=== PATIENT | female | born 1965 | race Caucasian/White ===

== ENCOUNTER → 2017-10-30 09:03 | Outpatient (CLI) | payer BC, SELFPAY ==
--- NOTE | 2017-10-30 09:10 | MM_ITS ---
. MM Dig screening mamm BI w/CAD CAD Screening ORDERING PHYSICIAN : Yanet Troncoso PATIENT AGE: 52 years GENDER: Female COMPARISON: Previous mammograms: August 2015. January 2013, February and 2007 INDICATION: Routine screening 50-year-old. Reports female hormones over past year. No new complaints Family history maternal great grandmother and maternal aunt with breast cancer TECHNIQUE: Standard CC and MLO images were obtained. Additional axillary cc views both breast R2 CAD reviewed. FINDINGS: Mild/Moderate breast density bilaterally with no dominant mass nor suspicious calcifications Slight Decreasing density the breast since previous film screen studies 2007 and 13 RIGHT BREAST: At the very posterior margin of today's MLO view there is a partially imaged small ~nearly 7 mm smooth margin nodular density which was not seen on the multiple available prior studies. Suspect This is most likely an lymph node at the very deep portion of the breast that was not included on previous studies.. However would suggest 6 month follow-up to confirm stability since it is new. (Favor would be the most cost effective way to confirm stability of this likely benign area.) Other small areas of nodularity in the deep axillary breast remain stable; . These long-standing latter areas contain some central lucency compatible with fatty umbilication of intramammary node& are not of concern. LEFT BREAST: Small area highlighted by CAD at the left breast is been stable since 2012 and 2007 No new areas of concern in the left. IMPRESSION: ......... 1. Right Breast. Small partially imaged 7 mm smooth nodular density the posterior margin of today's MLO image it is most likely a deep intramammary lymph node.. However since it was not seen on previous studies, I would suggest 6 month follow-up to confirm stability . Other small areas of nodularity at the deep right breast unchanged . 2. Left breast. Stable. No new findings. BI-RADS Category: 3 Benign Finding Short Term Follow-up RECOMMENDED FOLLOW-UP: 6M - 6 MONTH FOLLOW-UP right breast (A letter has been sent to the patient regarding results of the study.)
== END ==
PROVIDERS: Family Provider Family Medicine; PCP Nurse Practitioner Family; Visit Provider Obstetrics & Gynecology
DX: Z12.31 Encounter for screening mammogram for malignant neoplasm of breast (principal)
CPT/HCPCS: 77067

== ENCOUNTER → 2018-05-08 12:56 | Outpatient (CLI) | payer BC, SELFPAY ==
--- NOTE | 2018-05-08 13:04 | MM_ITS ---
MM Dig mamm DX unilat RT CAD INDICATION: Follow-up abnormal mammogram ORDERING PHYSICIAN: Yanet Troncoso PATIENT AGE: 53 years COMPARISON: 10/30/2017, 08/24/2015, 02/16/2013 TECHNIQUE: Standard images performed along with spot compression views FINDINGS: Average to dense fibroglandular tissue. Partially imaged smooth marginated nodular density seen in the deep aspect of the right breast on the MLO is once again noted somewhat difficult to image in the MLO view due to the deep location. Spot compression view shows this area to measure approximately 1 x 0.6 cm and likely corresponds to axillary lymph node demonstrated on the exiting [place] and not significant changed compared to multiple previous exams. There is an area of asymmetric density in the central aspect of the right breast slightly lateral probably due to asymmetric fibroglandular tissue incompletely compressed cavernous similar appearance on 08/24/2015 not redemonstrated on the axial [place] or the MLO view. There is asymmetric density lateral and superior to the nipple area or complex not significant changed dating back to 02/16/2013. No malignant appearing mass or malignant microcalcification. Benign-appearing nodules are present on the right IMPRESSION: Benign findings, no evidence of malignancy Recommend resume screening mammogram in October 2018 BI-RADS Category: 2 Benign Finding(s) RECOMMENDED FOLLOW-UP: 6M - 6 MONTH FOLLOW-UP (A letter has been sent to the patient regarding results of the study.)
== END ==
PROVIDERS: PCP Nurse Practitioner; Visit Provider Obstetrics & Gynecology
DX: Z09 Encounter for follow-up examination after completed treatment for conditions other than malignant neoplasm (principal)
CPT/HCPCS: 77065

== ENCOUNTER → 2019-02-09 15:52 | Outpatient (CLI) | payer BC, SELFPAY ==
--- NOTE | 2019-02-09 15:58 | MM_ITS ---
PROCEDURE: MM DIG SCREENING MAMM BI W/CAD CLINICAL INDICATION: SCREENING There is a history of breast cancer in patient's maternal great grandmother and maternal aunt COMPARISON: DMSB DIG MAMM-SCREEN FADI from 08/24/2015 SCBI MM Dig screening mamm BI w/CAD from 10/30/2017 DXRT MM Dig mamm DX unilat RT CAD from 05/08/2018 TECHNIQUE: Standard CC and MLO images were obtained. R2 CAD reviewed. FINDINGS: Prominent diffuse fibroglandular densities are seen in both breast somewhat lessening the sensitivity of mammography. There well-defined nodular density axilla right breast typical of a low-lying node. There is a 2nd well-defined nodular lesion upper outer quadrant and this likely is an intramammary node. There is no suspicious lesion and no suspicious microcalcifications. IMPRESSION: Moderate breast density with no suspicious lesions seen BI-RAD Category: 2 Benign Finding(s) FOLLOW-UP: 1YR 1 Year Follow-up (A letter has been sent to the patient regarding results of the study.) Dictated by: Dr. Nakul Flaherty MD 02/13/2019 12:[address] Nakul Flaherty MD in [place] 02/13/2019 12:57
== END ==
PROVIDERS: PCP Nurse Practitioner; Visit Provider Advanced Practice Midwife
DX: Z12.31 Encounter for screening mammogram for malignant neoplasm of breast (principal)
CPT/HCPCS: 77067

== ENCOUNTER → 2020-08-08 16:47 | Outpatient (CLI) | payer BC, SELFPAY ==
--- NOTE | 2020-08-08 16:53 | MM_ITS ---
PROCEDURE: MM DIG SCREENING MAMM BI W/CAD Digital Breast Tomosynthesis Included CLINICAL INDICATION: SCREENING Breast cancer in the patient's maternal great grandmother and maternal aunt. COMPARISON: MG SCBI MM Dig screening mamm BI w/CAD from 10/30/2017 MG DXRT MM Dig mamm DX unilat RT CAD from 05/08/2018 MG MM DIG SCREENING MAMM BI W/CAD from 02/09/2019 TECHNIQUE: Standard CC and MLO images and 3D Tomosynthesis was obtained. R2 CAD reviewed. FINDINGS: Prominent diffuse fibroglandular densities are seen throughout both breast. There are stable small nodular benign-appearing densities upper outer quadrant right breast. There are stable low-lying nodes in both axilla. There is no new or suspicious lesion in either breast and no suspicious microcalcifications. IMPRESSION: Stable exam with moderate diffuse breast density BI-RAD Category: 2 Benign Finding(s) FOLLOW-UP: 1YR 1 Year Follow-up (A letter has been sent to the patient regarding results of the study.) Dictated by: Dr. Nakul Flaherty MD 08/09/2020 12:01 Dr. Nakul Flaherty MD in [place] 08/09/2020 12:01
== END ==
PROVIDERS: PCP Nurse Practitioner; Visit Provider Advanced Practice Midwife
DX: Z12.31 Encounter for screening mammogram for malignant neoplasm of breast (principal)
CPT/HCPCS: 77063; 77067

== ENCOUNTER → 2021-02-01 16:39 | Outpatient (CLI) | payer BC, SELFPAY | PROVIDERS: PCP Family Medicine; Visit Provider Nurse Practitioner | DX: Z20.822 Contact with and (suspected) exposure to COVID-19 (principal) | CPT/HCPCS: C9803; U0003; U0005 ==

== ENCOUNTER → 2022-02-01 13:41 | Outpatient (CLI) | payer BC, SELFPAY ==
--- NOTE | 2022-02-01 13:52 | XR_ITS ---
FINAL REPORT CLINICAL HISTORY: LEFT ANTERIOR KNEE PAIN FINDINGS: Three views of the left knee reveal no evidence of fracture or dislocation. The bony alignment is normal. There are mild degenerative changes. There is no evidence of joint effusion. No localized soft tissue abnormality is seen. IMPRESSION: Degenerative change with no acute abnormality identified. Reviewed, Interpreted and Dictated by Cm Wells III, MD Transcribed by Stella Adame Authenticated and [facility]
== END ==
PROVIDERS: PCP Nurse Practitioner Family; Visit Provider Nurse Practitioner Family
DX: M25.562 Pain in left knee (principal)
CPT/HCPCS: 73562

== ENCOUNTER 2024-11-25 10:44 | Outpatient (CLI) | payer BC, SELFPAY ==
--- OUTSIDE RECORDS SUMMARY | 2024-11-25 10:47 | XMS_ITS | Data Portability ---
Author Organization [place] [employer] [facility] Address [address] [place] [address] Care Team Providers Care Curator Of Collections Name Role Phone COLETTE KIDD Primary Care Provider [phone] Assessment No assessment recorded. Plan of Treatment Reminders Order Date Submit Date Provider Last Modified By Organization Details Last Modified Time Details Appointments None recorded. Lab rapid SARS CoV 2 Ag, QL, IA, upper respiratory specimen 2021 022 [email or web address] 5 [facility], [address] [place] [address], [phone], 14:00:56 rapid flu (A+B) 2021 [facility]22 [email or web address], [address] [place] [address], [phone], 14:00:57 Referral None recorded. Procedures None recorded. Surgeries None recorded. Imaging None recorded. Medication Orders cefdinir 300 mg capsule 2022 [facility] [address] [place] [address], [address], [address], 12:58:36 Zithromax Z-Pb 250 mg tablet 2021 022 [email or web address] 0 [facility], [address] [place] [address], [address], [address], 12:31:31 Patient TargetsNo targets recorded. Patient Instructions Encounter Date Encounter Id Patient Instructions Last Modified By Organization Details Last Modified Time 03/21/2023 [id number] eating healthy foods: care instructions [email or web address] Not available 03/21/2023 12:52:38 exercise Not available 03/21 12:52:38 Reason for Referral None Reported. Results Created Date Observation Date Name Description Value Unit Range Abnormal Flag Note LastModifiedBy Organization Detail LastModifiedTime 02/21/20 22 02/20/2022 rapid SARS CoV 2 Ag, QL, IA, upper respi rator y speci men SARS CoV Ag negati ve Not Available [facility] on [address], [address], 02/20/2022 12:44:28 02/21/2002/20/2022 rapid flu (A+B) Flu A negati ve Not Available [facility] on [address], [phone], 02/20/2022 12:44:34 02/21/2002/20/2022 rapid flu (A+B) Flu B negati ve Not Available [facility] on [address], [address], 02/20/2022 12:44:34 Result Notes None recorded. Problems Name Problem SNOMED Code Status Onset Date Resolution Date Notes Provider Name and Address Organization Details Recorded Time Acute sinusitis 63193999 Active 2020 Problem Code: J01.90; Problem Code Type: ICD-10; Not Available [facility] 22:00:57 Allergic rhinitis caused by pollen 30300871 Active 2021 Problem Code: J30.1; Problem Code Type: ICD-10; Not Available [facility] 22:00:57 Problem Notes None recorded. Procedures Surgical History Date Name Laterality Status Provider Name and Address Organization Details Recorded Time tonsillectomy completed Angelina Fong [place] - [facility]. 03/21/2023 12:40:00 Imaging Results None recorded. Procedure Notes None recorded. Medical Equipment None Reported. Allergies No known drug allergies Medications Name Sig Start Date Stop Date Status Note LastModified by Organization Details LastModified Time prednisone 10 mg tablet take 50 mg by oral route once daily day 1 then decrease by 10mg po QD 02/20 completed Not Available Not Available Not Available cefuroxime axetil 250 mg tablet take 1 tablet (250 mg) by oral route 2 times per day 08/03 completed Not Available Not Available Not Available azithromyci n 250 mg tablet TAKE 2 TABLETS (500 MG) BY ORAL ROUTE ONCE DAILY FOR 1 DAY THEN 1 TABLET (250 MG) BY ORAL ROUTE ONCE DAILY FOR 4 DAYS 03/21 completed Not Available Not Available Not Available clarithromy caro 500 mg tablet active Not Available Not Available Not Available meloxicam 15 mg tablet active Not Available Not Available Not Available prednisolon e acetate 1 % eye drops,suspe nsion active Not Available Not Available Not Available hydrochloro thiazide 12.5 mg capsule take 1 capsule (12.5 mg) by oral route once daily active Not Available Not Available No t Available methylpredn isolone 4 mg tablets in a dose pack as directed active Not Available Not Available No t Available cefdinir 300 mg capsule Take 1 capsule every 12 hours by oral route for 7 days. active Not Available Not Available No t Available fluticasone propionate 50 mcg/actuati on nasal spray,suspe nsion active Not Available Not Available Not Available metoprolol tartrate 25 mg tablet active Not Available Not Available No t Available metoprolol tartrate 02/20 completed Not Available Not Available Not Available Ada Allergy 2021 active Not Available Not Available Not Avai lable Multi Vitamin 2021 active Not Available Not Available Not Avai lable QuickVue At-Home COVID-19 Test kit 03/21 completed Not Available Not Available Not Available Vitals Date Recorded Body weight Body mass index (BMI) Body height Body temperature Heart rate Oxygen saturation Oxygen saturation in Arterial blood by Pulse oximetry Provider Name and Address Organization Details Last Updated DateTime 2 57102.3 6 g 31.7 kg/m2 175.26 cm 97.6 [degF] 67 /min 100 % 100 % [employer] 2 12:41:12 Date Recorded Body height Body mass index (BMI) Body weight Body temperature Heart rate Oxygen saturation Oxygen saturation in Arterial blood by Pulse oximetry Provider Name and Address Organization Details Last Updated DateTime 3 172.72 cm 32.5 kg/m2 48961.7 7 g 98.2 [degF] 69 /min 98 % 98 % Angelina Fong [employer] 3 12:31:27 Social History Question Answer Notes LastModified by Organizat ion Details LastModified Time Tobacco Smoking Status Never Smoker SocialHis toryQuest ion: 'Tobacco/ Alcohol/S upplement s'; SocialHis toryRespo nse: 'Never Smoker'; Not Available [facility] 01/23/2022 23:01:56 Is Your Home Air Conditioned? Yes [email or web address] Information not available 03/21/2023 Do You Wear A Helmet When Biking? No [email or web address] Information not available 03/21/2023 Are You Blind Or Do You Have Difficulty Seeing? No Information not available 02/20/2022 Are You A Caregiver? No [email or web address] Information not available 03/21/2023 In The 14 Days Before Symptom Onset, Have You Had Close Contact With A Laboratory-confir med COVID-19 While That Case Was Ill? No [email or web address] Information not available 03/21/2023 In The 14 Days Before Symptom Onset, Have You Had Close Contact With A Person Who Is Under Investigation For COVID-19 While That Person Was Ill? No [email or web address] Information not available 03/21/2023 Have You Been To An Area Known To Be High Risk For COVID-19? No [email or web address] Information not available 03/21/2023 Are You Deaf Or Do You Have Serious Difficulty Hearing? No Information not available 02/20/2022 What Type Of Diet Are You Following? REGULAR [email or web address] Information not available 03/21/2023 Who Is Your Employer? [email or web address] Information not available 02/20/2022 Have There Been Any Changes To Your Family Or Social Situation? No [email or web address] Information no t available 03/21/2023 Are There Any Guns Present In Your Home? No [email or web address] Information not available 03/21/2023 What Is Your Relationship Status? Unknown Information not available 02/20/2022 Do You Use Your Seat Belt Or Car Seat Routinely? Yes [email or web address] Information not available 03/21/2023 Do You Have Smoke And Carbon Monoxide Detectors In Your Home? Yes [email or web address] Information not available 03/21/2023 Are You Passively Exposed To Smoke? No [email or web address] Information no t available 03/21/2023 Are There Any Smokers In Your House? No [email or web address] Information not available 03/21/2023 Do You Participate In Social Media? No [email or web address] Information not available 03/21/2023 Do You Use Sunscreen Routinely? Yes [email or web address] Information not available 03/21/2023 Has Tobacco Cessation Counseling Been Provided? No [email or web address] Information not available 03/21/2023 Have You Recently Traveled Abroad? No [email or web address] Information not available 03/21/2023 Do You Have Difficulty Walking Or Climbing Stairs? No Information no t available 02/20/2022 Are You Currently In School? No Information not available 02/20/2022 Do You Have Any Dietary Restrictions? No [email or web address] Information not available 03/21/2023 Sex: Female Functional Status Question Answer Note LastModified by Organizat ion Details LastModified Time Do you use any illicit or recreational drugs? No [email or web address] Information not available 03/21/2023 Do you or have you ever used any other forms of tobacco or nicotine? No [email or web address] Information not available 03/21/2023 What is your level of alcohol consumption? None Information not available 02/20/2022 Are you currently employed? Yes Information not available 02/20/2022 Do you have transportation difficulties? No Information not available 02/20/2022 Are you able to walk? [email or web address] Information not available 02/20/2022 Do you have difficulty doing errands alone? No Information not available 02/20/2022 Are you able to care for yourself? Yes Information not available 02/20/2022 Do you have difficulty dressing or bathing? No [facility] Information not available 02/20/2022 Mental Status Question Answer Note LastModified by Organizat ion Details LastModified Time Do you have difficulty concentrating, remembering or making decisions? No [facility] Information n ot available 02/20/2022 Family History Relationship Description Onset Age of this Age Resolved Age Notes LastModified by Organization Details LastModified Time Unspecified Relation Family history of Hypertension Relati ve: ''; [email or web address] Not available 01/23/2022 22:56:37 Unspecified Relation Family history of drug abuse Relati ve: ''; [email or web address] Not available 01/23/2022 22:56:37 Unspecified Relation Family history of alcoholism Relati ve: ''; [email or web address] Not available 01/23/2022 22:56:37 Unspecified Relation Family history of diabetes mellitus type 2 Relati ve: ''; [email or web address] Not available 01/23/2022 22:56:37 Medical History Condition Response Polyps Y Rheumatoid Arthritis Y Allergies/Hayfever Y Hypertension Y Gynecological HistoryNo gynecological history recorded. Obstetrics History GPAL:G 0 P 0 0 0 0 Past Encounters Encounter ID Performer Location Encounter Start Date Encounter Closed Date Diagnosis/Indication Diagnosis SNOMED-CT Code Diagnosis ICD10 Code Diagnosis Note [id number] Carmen Little PA-C [employer] [place] [phone] 02/20/2022 12:38:22 02/20/2022 14:49:44 Acute sinusitis 61444110 J01.90 rest, increase fluids, Tylenol for fever or headache, and humidifier . Continue Nasal spray. Body mass index 30+ - obesity 244914462 Z68.31 Tobacco non-user 4526229 001 51995 Z13.89 [id number] Carmen Little PA-C [employer] [facility] [address] [phone] 03/21/2023 12:29:53 03/22/2023 14:07:02 Acute maxillary sinusitis 21949182 J01.00 Omnicef as prescribed . Stop Ada and take Bromfed DM for congestion or cough. Humidifier and continue Flonase. F/u in 5-7 days if not improved. Body mass index 30+ - obesity 721778447 Z68.31 Tobacco non-user 6794151 001 66487 Z13.89 Health Concerns Section Related Observation LastModified by Organization Detai ls LastModified Time None Recorded Concern Status LastModified by Organization Details LastModified Time None Recorded Advance Directives Directive None Recorded Payers Insurance Date Sequence Insurance Name Policy Number Policy Cavazos Covered Member ID Cavazos Member ID Guarantor Name 03/21/2023 1 [place] [id number] 1 Zaida Tinoco [id number] Zaida Tinoco Notes Date Note Type Note Provider Name and Address Organization Details Recorded Time 02/20/2022 text/html Sinusitis/Allerg yRep orted bypatient.Location: axillary Quality:congested;co lored phlegm Severity:mild Onset/Timing:gradual onset; initially started 3days ago; progressively worse over last 1days Context:no recent upper respiratory infection; no recent sick contacts Alleviating factors:nasal steroid Flonase Aggravating factors:cold weather Associated Symptoms:no fever; no cough; no nausea or vomiting; no headache; no sore throat;facial pain bilaterally;sinus pain forehead Prior Treatmentnasal steroids:Flonase; antihistamine- Ada Carmen Little PA-C [address] [place] [address], [phone], [facility] [employer] 02/20/2022 14:01:51 03/21/2023 text/html Sinusitis/Allerg yRep orted bypatient.Location:m axillary Quality:congested;co lored phlegm Severity:mild Onset/Timing:gradual onset; initially started 6days ago; progressively worse over last 2days Context:no recent upper respiratory infection; no recent sick contacts Alleviating factors:nasal steroid Flonase; antihistamine fexofenadine Aggravating factors:allergies are active; cold weather Associated Symptoms:no fever; no cough; no nausea or vomiting; no sore throat;nasal discharge from both nostrils;headache;si nus pain forehead;thick phlegm in throat;ear fullness Risk Factors:no current smoking or tobacco use Carmen Little PA-C [address] [place] [address], [phone], [facility] [employer] 03/21/2023 12:53:08 OBGyn Episode No OBEpisode recorded.
--- OUTSIDE RECORDS SUMMARY | 2024-11-25 10:47 | XMS_ITS | Patient Health Record ---
Author Organization [facility] Address [address] [place] [address] Care Team Providers Care Network Solutions Architect Name Role Phone Nguyen Beaulieu Unavailable [phone] Pam Parks Unavailable [phone] Allergies Allergen (clinical drug ingredient) Drug/Non Drug Allergy documented on EMR Reaction Allergy Type Onset Date Status NON HYPOALLERGENIC LOTIONS (uncoded) Unspecified Allergy 09/16/2015 Active TRIPLE ABX OINTMENT (uncoded) Unspecified Allergy 09/16/2015 Active PENICILLIN V POTASSI UM (PENICILLIN V POTASSIUM TAB Unspecified Drug Allergy 09/16/2015 Active Reason For Referral Reason Screening Bilateral MMG- U/S if needed Diagnosis 1 *Encounter for scree jayy mammogram for malignant neoplasm of breast (Code also - any family Hx of malignant neoplasm (Z80.-) (Z12.31) Referral Organization [facility] Referring Provider First Name Pam Referring Provider Last Name Charly Referring Provider Speciality OB - Gynec ology Referral Priority Routine Medications Medication SIG (Take, Route, Fr equency, Duration) Notes Start Date End Date Status Fluticasone Propionate Active Ada Active Metoprolol Tartrate Active hydroCHLOROthiazide Active Social History Tobacco Use: Social History Observation Description Date Details (start date - stop date) Never Smoker NA - NA Sex Assigned At : Social History Observation Description Sex Assigned At Female Social History Drugs/Alcohol: Social Info Question Answer Notes Drugs Have you used drugs other than those for medical reasons in the past 12 months? No Alcohol Screen Did you have a drink containing alcohol in the past year? No Points 0 Interpretation Negative Tobacco Use: Social Info Question Answer Notes Tobacco Use/Smoking Are you a nonsmoker Problems Problem Type SNOMED Code ICD Code Onset Dates Problem Status W/U Status Risk Notes Problem Anemia due to blood loss (173378014) Anemia due to blood loss (D50.0) 016 Active confirmed Anemia due to chronic blood loss Problem Menstrual disorder (282260085) Menstrual disorder NEC (N92.5) 016 Active confirmed Excessive menstruation Problem Gynecological examination normal (85636469886270 4) Cervical smear, as part of routine gynecological examination (Z01.419) 017 Active confirmed Annual without abnormal findings Problem Difficulty sleeping (943417157) Sleep difficulties (G47.9) Active confirmed Vital Signs Blood pressure diastolic 74 mm Hg 02/28/2024 Height 68 in 02/28/2024 Blood pressure systolic 126 mm Hg 02/28/2024 Weight 214.0 lbs 02/28/2024 BMI 32.54 kg/m2 02/28/2024 Encounters Encounter Location Date Provider Diagnosis [facility] [address] [facility] [address] [place] [address] 02/28/2024 Pam Parks Senior [employer] Consult[employer] exam without abnormal findings Z01.419 and Visit for screening mammogram Z12.31 Assessments Encounter Date Diagnosis (ICD Code) Assessment Notes Treatment Notes Treatment Clinical Notes Section Notes 02/28/2024 [employer] exam without abnormal findings (ICD-10 - Z01.419) - Discussed current pap smear recommendations . Advised she is due in 2025 - Encouraged annual exams with PNP and PCP - Advised scheduling mammogram and follow up when due for colonoscopy - Advised since she has completed menopause any vaginal bleeding would be considered abnormal and would require follow up - Encouraged SBEs - Follow up as needed 02/28/2024 Visit for screening mammogram (ICD-10 - Z12.31) Plan Of Treatment No Information Insurance Providers Payer Name Payer Address Payer Phone Subscriber Number Group Number Insured Name Patient Relationship to Insured Coverage Start Date Coverage End Date Deric SUAREZ [address] [place] [address] [id number] Zaida Tinoco Self - patient is the insured 2 Medical (General) History Medical History History ICD Code High Blood Pressure Surgical History Surgery Date(Month/Year) left total knee replacement 10/2023
--- OUTSIDE RECORDS SUMMARY | 2024-11-25 10:47 | XMS_ITS ---
Author Organization Unknown Medications Medication Instructions Effective Dates (start - stop) Status meloxicam 15 MG Oral Tablet 2022:00:00.000+00 :00 - Completed {21 (methylprednisolone 4 MG Oral Tablet) } Pack [id number]:00:00.000+00 :00 - Completed fluticasone propionate 0.05 MG/ACTUAT Metered Dose Nasal [place] 8926-45-34J04:00:00 .000+00 :00 - Completed fluticasone propionate 0.05 MG/ACTUAT Metered Dose Nasal [place] [id number]:00:00 .000+00 :00 - Completed hydrochlorothiazide 12.5 MG Oral Capsule 2522-20-83S26:00:00.000+00 :00 - Completed fluticasone propionate 0.05 MG/ACTUAT Metered Dose Nasal [place] 8976-13-97I01:00:00 .000+00 :00 - Completed hydrochlorothiazide 12.5 MG Oral Capsule 9389-37-96M28:00:00.000+00 :00 - Completed metoprolol tartrate 25 MG Or al Tablet 0929-99-66W57:00:00.000+00 :00 - Completed - 5037-91-99G27:00 :00.000+00 :00 - Completed hydrochlorothiazide 12.5 MG Oral Capsule 5922-88-06M81:00:00.000+00 :00 - Completed metoprolol tartrate 25 MG Or al Tablet 4388-13-05J81:00:00.000+00 :00 - Completed fluticasone propionate 0.05 MG/ACTUAT Metered Dose Nasal [place] 6161-00-58B56:00:00 .000+00 :00 - Completed fluticasone propionate 0.05 MG/ACTUAT Metered Dose Nasal [place] [id number]:00:00 .+00 :00 - Completed prednisolone acetate 10 MG/M L Ophthalmic Suspension 7799-10-37T79:00:. :00 - Completed fluticasone propionate 0.05 MG/ACTUAT Metered Dose Nasal [place] 1525-12-94B57:00:00 .+00 :00 - Completed metoprolol tartrate 25 MG Or al Tablet 9888-67-26K43::00.00 :00 - Completed hydrochlorothiazide 12.5 MG Oral Capsule 9830-15-77U85:00:00.+00 :00 - Completed {6 (azithromycin 250 MG Oral Tablet) } Pack [id number]::00.00 :00 - Completed clarithromycin 500 MG Oral Tablet 8465-38-33G55:00:00.000+00 :00 - Completed metoprolol tartrate 25 MG Or al Tablet 0905-13-29R83::00.00 :00 - Completed fluticasone propionate 0.05 MG/ACTUAT Metered Dose Nasal [place] 6960-00-34K29:00:00 .+00 :00 - Completed Patient Care team information Name Category Status Period Participants - - Proposed period not known -
--- NOTE | 2024-11-25 10:48 | MM_ITS ---
PROCEDURE INFORMATION: Exam: MG Bilateral Screening 3D Mammography Exam date and time: 11/25/2024 11:00 AM Age: 59 years old Clinical indication: Screening examination TECHNIQUE: Imaging protocol: Bilateral Screening tomosynthesis and 2D mammography including computer-aided detection (CAD) when performed. COMPARISON: 1. MG MM DIG SCREENING MAMM BI W/CAD 08/08/2020 4:54 PM 2. MG MM DIG SCREENING MAMM BI W/CAD 02/09/2019 4:19 PM FINDINGS: MAMMOGRAPHY: Breast composition: There are scattered areas of fibroglandular density. Mass: None. Architectural distortion: None. Calcifications: No suspicious calcifications. Asymmetric density: None. Skin thickening: None. Axillary adenopathy: None. IMPRESSION: No mammographic evidence of malignancy. Annual screening is recommended unless otherwise clinically indicated. ASSESSMENT: BI-RADS Category 1: Negative.
== END 2024-11-25 23:59 | disposition home or self-care (01) ==
LOC: RAD 10:45
PROVIDERS: PCP Nurse Practitioner Family
DX: Z12.31 Encounter for screening mammogram for malignant neoplasm of breast (principal); R92.323 Mammographic fibroglandular density, bilateral breasts
CPT/HCPCS: 77063; 77067